=== PATIENT | female | born 1985 | race Native Hawaiian/Other Pacific Islander ===

== ENCOUNTER 2018-10-15 11:28 | Emergency (ER) | payer OTHER ==
[~2018-10-15] VITALS: Ht 160 cm; Wt 74.8 kg
[2018-10-15 11:28] VITALS: TEMP 98
[2018-10-15] MEDS ORDERED: NORGEST/ETH1 PO (11:40)
[2018-10-15 12:17] LABS: PLATELET COUNT 300 K/uL (152-353)
[2018-10-15 12:26] LABS: POTASSIUM 3.7 mmol/L (3.6-5.2)
[2018-10-15 12:37] LABS: PARTIAL THROMBOPLASTIN TIME 27.4 SECONDS (24.5-33.6)
[2018-10-15 15:08] VITALS: BP 118/77
== END 2018-10-15 15:08 | disposition home or self-care (01) ==
LOC: ED 11:28
PROVIDERS: Family Medicine
DX: R51 Headache (principal); J30.9 Allergic rhinitis, unspecified
CPT/HCPCS: 36415; 80053; 80307; 81000; 85027; 85610; 85730; 96374; 99284; J1885